=== PATIENT | male | born 1990 | race Caucasian/White ===

== ENCOUNTER 2019-08-30 10:01 | Emergency (ER) | payer OTHER ==
[~2019-08-30] VITALS: Ht 175.3 cm; Wt 81.8 kg
[2019-08-30 10:03] VITALS: BP 140/98
[2019-08-30] MEDS ORDERED: triamcinolone acetonide 40mg/ml inj IM ONE (10:10)
[2019-08-30] MEDS ORDERED: ALBU6.7H9 INH (10:11)
== END 2019-08-30 10:31 | disposition home or self-care (01) ==
LOC: ER 10:02
DX: J45.909 Unspecified asthma, uncomplicated (principal); Z79.899 Other long term (current) drug therapy
CPT/HCPCS: 96372; 99283; J3301